=== PATIENT | male | born 1940 | race Caucasian/White ===

== ENCOUNTER → 2017-01-13 | Outpatient (CLI) | payer MEDICARE ==
[~2017-01-13] MED LIST: AMLO5TAB66 PO; NAPR220T61 PO
--- NOTE | 2017-01-13 10:55 | DI ---
Indication: ITS.REASON: M54.5 LOW BACK PAIN PROCEDURE: LUMBAR SPINE COMP W/O BEND: Encounter: Initial Comparison: None Findings: Alignment of the lumbar spine shows degenerative anterolisthesis of L4 on L5. No definite acute compression fracture. Mild possibly physiologic wedging of T11 and T12. There is moderate disk space narrowing at L2-L3 with mild disk height loss at L4-L5. Degenerative facet disease at L4-S1. The oblique views show no obvious pars defects. Impression: Degenerative disk and facet disease as above. .
== END ==
LOC: IMA 09:26
PROVIDERS: ATTEND Family Medicine
DX: M43.16 Spondylolisthesis, lumbar region (principal); M47.817 Spondylosis without myelopathy or radiculopathy, lumbosacral region; M51.36 Other intervertebral disc degeneration, lumbar region; M54.5 Low back pain